=== PATIENT | male | born 1965 | race Caucasian/White ===

== ENCOUNTER 2025-07-02 08:03 | Outpatient (CLI) | payer OTHER, SELFPAY | END 2025-07-02 08:04 | disposition home or self-care (01) | LOC: NFLDREF 07-07 04:06 | PROVIDERS: PCP Family Medicine; Referring Provider Family Medicine; Visit Provider Family Medicine | DX: R79.89 Other specified abnormal findings of blood chemistry (principal); I44.1 Atrioventricular block, second degree | CPT/HCPCS: 80076 ==

== ENCOUNTER 2025-07-22 08:00 | Outpatient (CLI) | payer OTHER, SELFPAY ==
[2025-07-22 13:49] LABS: Hematocrit* 41.0 % (37.0-53.0); Hemoglobin* 13.6 gm/dL (13.5-17.5); Immature Granulocytes Abs Auto 0.00 K/uL (0.00-0.30); Immature Granulocytes Pct Auto 0.0 %; Lymphocytes Absolute Auto 1.73 K/uL (0.90-2.90); Mean Corpuscular HGB Conc 33 gm/dL (32-36); Mean Corpuscular Hemoglobin 29 pg (26-34); Mean Corpuscular Volume 88 fL (80-100); RDW Coefficient of Variation % 13.0 % (11.5-15.5); Red Blood Count* 4.65 m/uL (4.30-5.90); White Blood Count* 6.61 K/uL (4.50-11.00)
[2025-07-22 14:00] LABS: Slide Review Reflex No
[2025-07-22 14:56] LABS: Chloride* 104 mmol/L (96-114); Potassium* 4.5 mmol/L (3.6-5.1); Sodium* 136 mmol/L (135-149)
[2025-07-22 14:58] LABS: Blood Urea Nitrogen* 28 mg/dL (7-30); Creatinine* 1.2 mg/dL (0.5-1.5); Estimated Glomerular Filt Rate 69 ml/min
[2025-07-22 14:59] LABS: Anion Gap 5 mEq/L (7-15); Calcium* 9.1 mg/dL (8.4-10.6); Carbon Dioxide* 27 mmol/L (20-32); Glucose* 111 mg/dL (60-115)
[2025-07-24 15:04] LABS: Lyme ELISA Reflex 0.29 IV (<=0.90)
== END 2025-07-22 08:01 | disposition home or self-care (01) ==
LOC: NPINS 08:02
PROVIDERS: PCP Family Medicine; Visit Provider Internal Medicine
DX: Z01.812 Encounter for preprocedural laboratory examination (principal); I44.30 Unspecified atrioventricular block
CPT/HCPCS: 80048; 85025; 86618

== ENCOUNTER 2025-07-23 11:36 | Outpatient (CLI) | payer OTHER, SELFPAY ==
--- NOTE | 2025-08-27 13:40 | W.PM.SLEEP ---
Sleep Study Details Details Interpreting Provider: Mendy Date of Sleep Study: 07/23/25 Sleep Study Details: STUDY TYPE:? Home unattended ? BMI:? 27.8 ORDERING PROVIDER:? Nish INDICATION:? Concern for sleep apnea ? SLEEP SUMMARY:? 575 minutes monitored RESPIRATORY SUMMARY:? AHI 44.6 per rule 1 8, 42.5 per CMS guideline. Central apnea index is 13.3 Low oxygen 73 13.9% of the study oxygen was less than 90% Snoring 97.6% PERIODIC LIMB MOVEMENTS OF SLEEP:? Not recorded CARDIAC:? Range 45-94, mean 61.5 beats per minute IMPRESSION:? Severe obstructive sleep apnea with approximately 1 3rd of the apneas being central apneas RECOMMENDATION: In-lab titration study. If ASV is needed a cardiac echo would need to be performed to ensure normal ejection fraction.
== END 2025-07-23 11:37 | disposition home or self-care (01) ==
LOC: SLEEP 11:37
PROVIDERS: PCP Family Medicine; Visit Provider Family Medicine
DX: G47.33 Obstructive sleep apnea (adult) (pediatric) (principal)
CPT/HCPCS: 95806

== ENCOUNTER 2025-08-06 11:38 | Outpatient (CLI) | payer OTHER, SELFPAY | END 2025-08-06 11:39 | disposition home or self-care (01) | PROVIDERS: PCP Family Medicine; Visit Provider Family Medicine | DX: Z13.9 Encounter for screening, unspecified (principal); E78.2 Mixed hyperlipidemia | CPT/HCPCS: 80061; G0103 ==